=== PATIENT | female | born 1975 | race Caucasian/White ===

== ENCOUNTER 2017-05-16 15:27 | Emergency (ER) | payer MEDICAID ==
[~2017-05-16] VITALS: Ht 177.8 cm; Wt 95.8 kg
[2017-05-16 15:30] VITALS: BP 119/79
[2017-05-16] MEDS ORDERED: ALPR0.25 PO (16:17)
[2017-05-16] MEDS ORDERED: ESCI5TAB7 PO (16:17)
[2017-05-16] MEDS ORDERED: SPIR25TA3 PO (16:18)
[2017-05-16] MEDS ORDERED: GEMF600T3 PO (16:19)
== END 2017-05-16 16:32 | disposition home or self-care (01) ==
LOC: ED 16:00
DX: F41.1 Generalized anxiety disorder (principal); E03.9 Hypothyroidism, unspecified
CPT/HCPCS: 99284